=== PATIENT | female | born 1950 | race Hispanic/Latino ===

== ENCOUNTER → 2021-03-09 | Outpatient (CLI) | payer MEDICARE | END | disposition home or self-care (01) | LOC: RAH 10:31 | PROVIDERS: ATTEND Internal Medicine Gastroenterology | DX: R14.0 Abdominal distension (gaseous) (principal); R10.13 Epigastric pain | CPT/HCPCS: 78264; A9541 ==

== ENCOUNTER 2022-09-19 07:16 | Observation (INO) | payer MEDICARE ==
[2022-09-17 10:41] LABS: BASOPHILS % (AUTO) 0.2 % (0.0-5.0); EOSINOPHILS % (AUTO) 2.7 % (0.0-8.0); HEMATOCRIT 42.6 % (36-48); LYMPHOCYTES % (AUTO) 28.3 % (21.0-51.0); MEAN CORPUSCULAR HEMOGLOBIN 30.4 pg (27.0-33.0); MEAN CORPUSCULAR HGB CONC 32.2 g/dL (32.0-36.0); MEAN CORPUSCULAR VOLUME 94.5 fL (79-99); NEUTROPHILS % (AUTO) 59.6 % (40.0-77.0); PLATELET COUNT (AUTO) 253 K/uL (130-400); RED BLOOD CELL COUNT(AUTO) 4.51 MIL/uL (4.00-5.50); RED CELL DISTRIBUTION WIDTH 12.6 % (11.0-15.5); WHITE BLOOD COUNT (AUTO) 4.8 K/uL (4.8-10.8)
[2022-09-17 10:51] LABS: INR 1.03 (0.85-1.15); PROTHROMBIN TIME 11.2 SEC (9.6-11.6)
[2022-09-17 10:51] LABS: APPEARANCE,URINE CLEAR (CLEAR); BILIRUBIN,URINE NEGATIVE (NEGATIVE); COLOR,URINE LIGHT-YELLOW (YELLOW); GLUCOSE, URINE (UA) NEGATIVE (NEGATIVE); KETONES,URINE NEGATIVE (NEGATIVE); LEUKOCYTE ESTERASE ,URINE NEGATIVE Leu/uL (NEGATIVE); NITRATE,URINE NEGATIVE (NEGATIVE); OCCULT BLOOD,URINE SMALL (NEGATIVE); PROTEIN,URINE NEGATIVE (NEGATIVE); UROBILINOGEN,URINE 0.2 mg/dL (0.2-1.0)
[2022-09-17 10:53] LABS: ALBUMIN 3.7 g/dL (3.5-5.0); CREATININE 0.9 mg/dL (0.5-1.5); PARTIAL THROMBOPLASTIN TIME 28.5 SEC (26.3-35.5); POTASSIUM 3.7 mmol/L (3.5-5.1); TOTAL PROTEIN, SERUM 7.6 g/dL (6.0-8.3)
[2022-09-17 11:22] LABS: MUCUS,URINE RARE LPF (None Seen); SQUAMOUS EPITHELIAL CELL,UR RARE /HPF (0-2)
[2022-09-18 08:53] VITALS: BP 117/73
[2022-09-19] VITALS (24 sets, daily range): BP systolic 124–176; BP diastolic 70–93
[~2022-09-19] VITALS: Ht 165.1 cm; Wt 68.5 kg
[~2022-09-19 07:16] MED LIST: 0.9% NACL 500ML IV.SOLN 500 ML IV SCH; CEFAZOLIN SODIUM 2 GM VIAL IVPB SCH; FAMO40TA7 PO; LISI10TA24 PO; METO-408 PO; PHARMACY COMMUNICATION MISC SCH; ROSU10TA28 PO; ZOLP5TAB8 PO
[2022-09-19] MEDS ORDERED: GENTAMICIN SULFATE 80 MG/2 ML VIAL ONE ×2 (07:58→10:28)
[2022-09-19] MEDS ORDERED: LACTATED RINGERS 1000ML 1,000 ML IV ONE (08:23)
[2022-09-19] MEDS ORDERED: LIDOCAINE HCL MPF 1% 5ML VIAL ONE (10:06)
[2022-09-19] MEDS ORDERED: PROPOFOL 10 MG/ML 20ML VIAL IV ONE (10:06)
[2022-09-19] MEDS ORDERED: MIDAZOLAM HCL 1 MG/ML 2ML VIAL ONE (10:06)
[2022-09-19] MEDS ORDERED: ROCURONIUM 10MG/1ML SYR 10 MG/ML ML ONE (10:06)
[2022-09-19] MEDS ORDERED: CEFAZOLIN SODIUM 1 GM VIAL ONE ×2 (10:28→14:56)
[2022-09-19] MEDS ORDERED: METHYLENE BLUE 5 MG/ML AMP ONE ×2 (10:29→10:44)
[2022-09-19] MEDS ORDERED: KETOROLAC 15MG/ML VIAL (15MG/ML) ONE (10:30)
[2022-09-19] MEDS ORDERED: BUPIVACAINE/EPI/PF 0.5% 30ML VIAL IJ ONE (10:30)
[2022-09-19] MEDS ORDERED: FENTANYL CITRATE PF 50 MCG/1 ML 5ML AMP IV ONE (10:56)
[2022-09-19] MEDS ORDERED: EPHEDRINE SULFATE 50 MG/ML AMPULE ONE (11:04)
[2022-09-19] MEDS ORDERED: BUPIVACAINE LIPOSOME/PF 266 MG/20 ML ML IJ SCH (13:30)
[2022-09-19] MEDS ORDERED: GLYCOPYRROLATE 1 MG/5 ML SYRINGE ONE (13:54)
[2022-09-19] MEDS ORDERED: NEOSTIGMINE 5MG/5ML SYR IV ONE (13:54)
[2022-09-19] MEDS ORDERED: MEPERIDINE-PF 25 MG/ML SYG IV PRN (14:00)
[2022-09-19] MEDS ORDERED: ACETAMINOPHEN 650 MG SUPPOSITORY RC PRN (14:00)
[2022-09-19] MEDS ORDERED: ONDANSETRON 4MG INJ IVP PRN (14:00)
[2022-09-19] MEDS ORDERED: PHENYLEPHRINE HCL 10 MG/ML 1ML VIAL IV ONE (14:09)
[2022-09-19] MEDS: CEFAZOLIN SODIUM 1 GM VIAL IVP SCH (16:41)
[2022-09-19] MEDS: GABAPENTIN 100 MG CAPSULE PO SCH ×3 (16:42→22:03)
[2022-09-19] MEDS: TRAMADOL HCL 50 MG TABLET PO SCH ×2 (16:42→22:01)
[2022-09-19] MEDS ORDERED: PROMETHAZINE HCL 25 MG/ML 1ML AMPULE IM PRN (17:00)
[2022-09-20] MEDS: CEFAZOLIN SODIUM 1 GM VIAL IVP SCH ×4 (00:06→21:30)
[2022-09-20 02:40] VITALS: BP 129/60
[2022-09-20] MEDS: LACTATED RINGERS 1000ML 1,000 ML IV SCH ×3 (02:42→17:55)
[2022-09-20 03:27] LABS: BASOPHILS % (AUTO) 0.3 % (0.0-5.0); EOSINOPHILS % (AUTO) 1.1 % (0.0-8.0); HEMATOCRIT 33.8 % (36-48); MEAN CORPUSCULAR HEMOGLOBIN 30.7 pg (27.0-33.0); MEAN CORPUSCULAR HGB CONC 33.1 g/dL (32.0-36.0); MEAN CORPUSCULAR VOLUME 92.6 fL (79-99); MONOCYTES % (AUTO) 6.9 % (3.0-13.0); NEUTROPHILS % (AUTO) 74.4 % (40.0-77.0); PLATELET COUNT (AUTO) 208 K/uL (130-400); RED BLOOD CELL COUNT(AUTO) 3.65 MIL/uL (4.00-5.50); RED CELL DISTRIBUTION WIDTH 12.7 % (11.0-15.5); WHITE BLOOD COUNT (AUTO) 7.1 K/uL (4.8-10.8)
[2022-09-20 03:37] LABS: CREATININE 0.8 mg/dL (0.5-1.5); POTASSIUM 3.5 mmol/L (3.5-5.1)
[2022-09-20] MEDS: TRAMADOL HCL 50 MG TABLET PO SCH ×4 (04:39→20:25)
[2022-09-20 06:41] VITALS: BP 136/64
[2022-09-20] MEDS: GABAPENTIN 100 MG CAPSULE PO SCH ×3 (08:10→20:26)
[2022-09-20 11:35] VITALS: BP 139/65
[2022-09-20 15:20] VITALS: BP 161/80
[2022-09-20 19:24] VITALS: BP 140/66
[2022-09-20] MEDS ORDERED: ZOLPIDEM TARTRATE 5 MG TAB PO SCH (21:00)
[2022-09-20] MEDS ORDERED: METOPROLOL SUCCINATE 25 MG TAB.SR.24H PO SCH (21:00)
[2022-09-20] MEDS ORDERED: Rosuvastatin Calcium 10 MG PO SCH (21:00)
[2022-09-20] MEDS ORDERED: FAMOTIDINE 20MG TAB PO SCH (21:00)
[2022-09-20 22:48] VITALS: BP 138/72
[2022-09-21 02:26] VITALS: BP 111/63
[2022-09-21] MEDS: TRAMADOL HCL 50 MG TABLET PO SCH (02:29)
[2022-09-21] MEDS: CEFAZOLIN SODIUM 1 GM VIAL IVP SCH (05:38)
[2022-09-21 06:09] VITALS: BP 121/69
[2022-09-21 08:49] LABS: BASOPHILS % (AUTO) 0.1 % (0.0-5.0); EOSINOPHILS % (AUTO) 2.8 % (0.0-8.0); HEMATOCRIT 34.5 % (36-48); MEAN CORPUSCULAR HEMOGLOBIN 30.5 pg (27.0-33.0); MEAN CORPUSCULAR HGB CONC 32.2 g/dL (32.0-36.0); MEAN CORPUSCULAR VOLUME 94.8 fL (79-99); MONOCYTES % (AUTO) 8.7 % (3.0-13.0); PLATELET COUNT (AUTO) 174 K/uL (130-400); RED BLOOD CELL COUNT(AUTO) 3.64 MIL/uL (4.00-5.50); RED CELL DISTRIBUTION WIDTH 12.7 % (11.0-15.5); WHITE BLOOD COUNT (AUTO) 8.5 K/uL (4.8-10.8)
[2022-09-21 08:59] LABS: CREATININE 0.8 mg/dL (0.5-1.5); POTASSIUM 3.8 mmol/L (3.5-5.1)
[2022-09-21] MEDS: GABAPENTIN 100 MG CAPSULE PO SCH ×2 (09:00→14:52)
[2022-09-21] MEDS ORDERED: LISINOPRIL 10 MG TABLET PO SCH (09:00)
[2022-09-21] MEDS ORDERED: TRAMADOL HCL 50 MG TABLET PO PRN (09:00)
[2022-09-21 11:20] VITALS: BP 163/78
[2022-09-21] MEDS ORDERED: [UNRECOGNIZED DRUG - CODE] MC (15:42)
[2022-09-21] MEDS ORDERED: GABA-529 PO (15:42)
[2022-09-21] MEDS ORDERED: TRAM50TA4 PO (15:44)
[2022-09-21] MEDS ORDERED: IBUP-2077 PO (15:48)
== END 2022-09-21 16:40 | disposition home or self-care (01) ==
LOC: DAH 07:16 → WSH 07:17 → DAH 07:17
PROVIDERS: ADMIT Student in an Organized Health Care Education/Training Program; ATTEND Student in an Organized Health Care Education/Training Program
DX: C50.911 Malignant neoplasm of unspecified site of right female breast (principal); Z20.822 Contact with and (suspected) exposure to COVID-19; Z90.11 Acquired absence of right breast and nipple; Z79.899 Other long term (current) drug therapy; Z98.890 Other specified postprocedural states
CPT/HCPCS: 80053; 85025 ×3; 85610; 85730; 87426; 81001; 36415 ×3; 71045; 93005; 78195; 19303; 38525; 96374; 96372; 96375; 88331; 88307; 88342; 88341; 96376 ×2; 80048 ×2; 97161; 97039; 97116; C9290 ×2; A6260; A9541; G0378 ×48; J7040; J7030; J7120 ×3; A4344; J3010; J0690 ×10; J3490 ×4; J2710; J2550; J1580 ×2; J2250; J2704; J2405; Q9968 ×2; J1885; J2370; A4649 ×5; A6213; C9358; A4215; A4223; A4222; A4221; A4663; C1789

== ENCOUNTER 2022-11-07 06:17 | Day surgery (SDC) | payer MEDICARE ==
[2022-11-05 12:12] LABS: BASOPHILS % (AUTO) 0.2 % (0.0-5.0); EOSINOPHILS % (AUTO) 2.1 % (0.0-8.0); HEMATOCRIT 41.4 % (36-48); LYMPHOCYTES % (AUTO) 23.6 % (21.0-51.0); MEAN CORPUSCULAR HEMOGLOBIN 30.1 pg (27.0-33.0); MEAN CORPUSCULAR HGB CONC 33.1 g/dL (32.0-36.0); MONOCYTES % (AUTO) 6.3 % (3.0-13.0); NEUTROPHILS % (AUTO) 67.3 % (40.0-77.0); PLATELET COUNT (AUTO) 331 K/uL (130-400); RED BLOOD CELL COUNT(AUTO) 4.55 MIL/uL (4.00-5.50); RED CELL DISTRIBUTION WIDTH 12.8 % (11.0-15.5); WHITE BLOOD COUNT (AUTO) 6.7 K/uL (4.8-10.8)
[2022-11-05 12:28] LABS: ALBUMIN 3.6 g/dL (3.5-5.0); POTASSIUM 3.9 mmol/L (3.5-5.1); TOTAL PROTEIN, SERUM 7.7 g/dL (6.0-8.3)
[2022-11-06 10:09] VITALS: BP 158/80
[~2022-11-07] VITALS: Ht 163.8 cm; Wt 64.9 kg
[2022-11-07] VITALS (13 sets, daily range): BP systolic 100–148; BP diastolic 56–92
[~2022-11-07 06:17] MED LIST changes: -0.9% NACL 500ML IV.SOLN 500 ML IV SCH; +BUPIVACAINE/PF 0.5% 30ML VIAL ONE; -CEFAZOLIN SODIUM 2 GM VIAL IVPB SCH; -PHARMACY COMMUNICATION MISC SCH
[2022-11-07] MEDS ORDERED: LACTATED RINGERS 1000ML 1,000 ML IV ONE (06:57)
[2022-11-07] MEDS ORDERED: CEFAZOLIN SODIUM 2 GM VIAL ONE (06:57)
[2022-11-07] MEDS ORDERED: GLYCOPYRROLATE 1 MG/5 ML SYRINGE ONE (07:35)
[2022-11-07] MEDS ORDERED: LIDOCAINE PF 100MG/5ML (2%) SYRINGE 5ML ONE (07:35)
[2022-11-07] MEDS ORDERED: PROPOFOL 10 MG/ML 20ML VIAL IV ONE (07:36)
[2022-11-07] MEDS ORDERED: FENTANYL CITRATE PF 50 MCG/1 ML 2ML VIAL ONE (07:36)
[2022-11-07] MEDS ORDERED: PHENYLEPHRINE HCL 10 MG/ML 1ML VIAL IV ONE (07:38)
[2022-11-07] MEDS ORDERED: 0.9%NACL 1000ML 1,000 ML IV SCH (08:00)
[2022-11-07] MEDS ORDERED: CEFAZOLIN SODIUM 2 GM VIAL IVPB PRN (08:00)
[2022-11-07] MEDS ORDERED: FAMOTIDINE 20MG VIAL IV ONE (12:10)
[2022-11-07] MEDS ORDERED: BUPIVACAINE/PF 0.5% 30ML VIAL INJ ONE (12:22)
== END 2022-11-07 14:25 | disposition home or self-care (01) ==
LOC: DAH 06:17
PROVIDERS: ATTEND Student in an Organized Health Care Education/Training Program
DX: C50.911 Malignant neoplasm of unspecified site of right female breast (principal); Z20.822 Contact with and (suspected) exposure to COVID-19; I10 Essential (primary) hypertension; K21.9 Gastro-esophageal reflux disease without esophagitis; E78.5 Hyperlipidemia, unspecified; G47.00 Insomnia, unspecified; Z98.890 Other specified postprocedural states; Z90.49 Acquired absence of other specified parts of digestive tract; Z90.710 Acquired absence of both cervix and uterus; Z98.891 History of uterine scar from previous surgery; Z88.8 Allergy status to other drugs, medicaments and biological substances; Z82.49 Family history of ischemic heart disease and other diseases of the circulatory system
CPT/HCPCS: 80053; 85025; 87426; 36415; 93005; 36561; 77001; A4663; A6207; A4606; C1788; J7120; J3490 ×4; J3010; J2001; J2704; J1644; J2370; J0690; G0168; A4930; A4215; A4223; A4222; A4221; 77002

== ENCOUNTER → 2025-07-14 | Outpatient (CLI) | payer OTHER, MEDICARE ==
[~2025-07-14] MED LIST changes: -BUPIVACAINE/PF 0.5% 30ML VIAL ONE; +IOHEXOL 350 MG/ML 100ML INFUS..BTL IV ONE; -ROSU10TA28 PO; +ROSU10TA98 PO; +ZOLP5TAB16 PO; -ZOLP5TAB8 PO
--- NOTE | 2025-07-21 09:23 | CARDIOLOGY ---
RAD REPORT: CORNARY CT ANGIO RADIOLOGY REPORT: CORONARY CT ANGIOGRAPHY DATE: Jul 14, 2025 QUALITY: Excellent CLINICAL HISTORY AND INDICATION: [ chest pain ] TECHNIQUE: After obtaining a preliminary pcb design engineer image, contrast imaging performed on an [employer] [id number] scanner. A dedicated, limited window, coronary imaging protocol was used, with single breath-hold, retrospective ECG gating, and automated arrhythmia rejection. 100 cc of low osmolar contrast agent: Omnipaque 350 was delivered via a 18-gauge IV catheter in the right antecubital fossa, using a power injector and followed by 60 cc of normal saline bolus as a chaser. Collimated images were reformatted at 0.5 mm intervals, and sent to an offline independent workstation for interpretation, using 3D anatomic reconstructions: Curved multiplanar reconstructions, maximum intensity projections, and multiplanar imaging. No metoprolol was administered prior to scanning due to low baseline heart rate. 0.4 mg SL nitroglycerin was given. CORONARY ARTERY DESCRIPTIONS: The coronary arteries arise in normal position. Left main coronary artery: Normal caliber vessel that bifurcates into the LAD and LCx. No stenosis. Left anterior descending coronary artery: Normal caliber vessel and gives rise to diagonal and septal branches. There is mixed calcified and noncalcified plaque in the proximal LAD with 20-30% stenosis. Left circumflex coronary artery: Normal caliber, co-dominant and gives rise to two OM branches. No stenosis. Right coronary artery: Large, co-minant vessel. No stenosis. CAD-RADs: 2, mild non-obstructive CAD. Thoracic Aorta: Normal diameter. Sona Haynes MD Cardiovascular Disease [facility] SONA HAYNES MD Jul 21, 2025 09:23
== END | disposition home or self-care (01) ==
LOC: RAH 08:12
PROVIDERS: ATTEND Internal Medicine Cardiovascular Disease
DX: I25.10 Atherosclerotic heart disease of native coronary artery without angina pectoris (principal); R06.02 Shortness of breath
CPT/HCPCS: 75574; Q9967